=== PATIENT | male | born 1990 | race Caucasian/White ===

== ENCOUNTER 2024-07-02 10:36 | Emergency (ER) | payer MEDICAID ==
[~2024-07-02] VITALS: Ht 180.3 cm; Wt 81.5 kg
[~2024-07-02 10:36] MED LIST: NALO4SPR BOTHNARES
[2024-07-02 10:40] VITALS: BP 119/79; PULSE 110; RESP 16; O2SAT 98
[2024-07-02] MEDS ORDERED: CEPH-585 PO (11:15)
[2024-07-02 11:25] VITALS: TEMP 98
== END 2024-07-02 11:26 | disposition home or self-care (01) ==
LOC: ER 10:36
DX: S80.861A Insect bite (nonvenomous), right lower leg, initial encounter (principal); W57.XXXA Bitten or stung by nonvenomous insect and other nonvenomous arthropods, initial encounter; Y93.89 Activity, other specified; Y92.89 Other specified places as the place of occurrence of the external cause; Y99.8 Other external cause status
CPT/HCPCS: 99283